=== PATIENT | female | born 1955 | race Two or more races ===

== ENCOUNTER 2019-11-26 07:01 | Day surgery (SDC) | payer MEDICARE ==
[2019-11-19 11:52] LABS: BASOPHILS # (AUTO) 0.1 X10'3 (0-0.2); EOSINOPHILS % (AUTO) 0.4 % (0-6); LYMPHOCYTES # (AUTO) 2.1 X10'3 (1.1-4.8); LYMPHOCYTES % (AUTO) 24.9 % (21-51); MEAN CORPUSCULAR HEMOGLOBIN 34.3 PG (27.0-31.0); MEAN CORPUSCULAR HGB CONC 34.9 g/dL (33.0-36.5); MEAN CORPUSCULAR VOLUME 98.2 FL (78-98); MEAN PLATELET VOLUME 8.4 FL (7.4-10.4); MONOCYTES # (AUTO) 0.4 X10'3 (0-0.9); MONOCYTES % (AUTO) 4.9 % (2-12); NEUTROPHILS # (AUTO) 5.9 X10'3 (1.8-7.7); NEUTROPHILS % (AUTO) 68.8 % (42-75); PRE OP PLATELET COUNT 237 X10'3 (140-440); RED BLOOD COUNT 4.68 X10'6 (4.20-5.60); RED CELL DISTRIBUTION WIDTH 13.2 % (11.5-14.5)
[2019-11-19 12:12] LABS: ALBUMIN 3.6 G/DL (3.4-5.0); ALBUMIN/GLOBULIN RATIO 0.9 (1.1-1.5); ALKALINE PHOSPHATASE 86 IU/L (46-116); BLOOD UREA NITROGEN 16 MG/DL (7-18); CALCIUM 8.7 MG/DL (8.5-10.1); CHLORIDE 104 MMOL/L (99-107); PRE OP ALT 23 U/L (30-65); PRE OP ANION GAP 10 (8-16); PRE OP AST 13 U/L (10-37); PRE OP BILIRUB, TOTAL 0.4 MG/DL (0.0-1.0); PRE OP GLUCOSE 94 MG/DL (70-104); PRE OP POTASSIUM 3.9 MMOL/L (3.4-5.1); PRE OP SODIUM 138 MMOL/L (135-145); TOTAL CARBON DIOXIDE 24.3 MMOL/L (24-32); TOTAL PROTEIN 7.7 G/DL (6.4-8.2); eGFR 72 ML/MIN
[2019-11-26] VITALS (13 sets, daily range): BP systolic 142–187; BP diastolic 67–96
[~2019-11-26] VITALS: Ht 157.5 cm; Wt 94.3 kg
[~2019-11-26 07:01] MED LIST: APIX5TAB3 PO; BUPIVAcaine/PF 2.5 mg/ml (0.25%) 30ml vial ONE; CHLO25TA2 PO; DOCUMENT DATE & TIME OF BETA-BLOCKER PO ONE; ESCI10TA61 PO; LIDOcaine 1% 30ml preserv. free vial ONE; LOSA50TA64 PO; NEBI5TAB10 PO; OMEP-50 PO; PRAV40TA3 PO; PROP150T2 PO; clindamycin-Cleocin 900mg/D5W 50 ML IV ONE; famotidine 20mg tablet PO ONE; ringers solution, lacted 1,000 ML IV SCH
[2019-11-26] MEDS ORDERED: ringers solution, lacted 1,000 ML IV SCH (09:27)
[2019-11-26] MEDS ORDERED: ondansetron/PF 4mg/2ml inj IV PRN (09:30)
[2019-11-26] MEDS ORDERED: morphine 2 MG/ML inj. syringe IV PRN (09:30)
[2019-11-26] MEDS ORDERED: morphine 4 MG/ML inj SYRINge IV PRN (09:30)
[2019-11-26] MEDS ORDERED: hydrALAZINE 20mg/ml inj. IV PRN (09:30)
[2019-11-26] MEDS ORDERED: fentaNYL/PF 50MCG/1 ML 2ML syringe IV PRN ×2 (09:30)
[2019-11-26] MEDS ORDERED: labetalol 20mg/4ml (5mg/ml) syringe IV PRN (09:30)
[2019-11-26] MEDS ORDERED: sevoflurane 250ml liquid IH ONE (09:34)
[2019-11-26] MEDS ORDERED: glycopyrrolate 0.2mg/ml inj ONE (09:34)
[2019-11-26] MEDS ORDERED: neostigmine methylsulfate 1 MG/ML 10ml vial ONE (09:34)
[2019-11-26] MEDS ORDERED: fentaNYL/PF 50MCG/1 ML 2ML syringe ONE (09:35)
[2019-11-26] MEDS ORDERED: midazolam 2 mg/2 ml injection ONE (09:35)
[2019-11-26] MEDS ORDERED: rocuronium 10mg/ml inj IV ONE (09:40)
[2019-11-26] MEDS ORDERED: ondansetron/PF 4mg/2ml inj ONE (09:40)
[2019-11-26] MEDS ORDERED: propofol inj 20 ML IV ONE (09:40)
[2019-11-26] MEDS ORDERED: dexamethasone sod phosphate 4mg/ml inj. ONE (09:41)
[2019-11-26] MEDS ORDERED: labetalol 20mg/4ml (5mg/ml) syringe IV ONE (09:42)
[2019-11-26] MEDS ORDERED: BUPIVAcaine/PF 2.5mg/ml (0.25%) 10ml vial ONE (09:45)
[2019-11-26] MEDS ORDERED: BUPIVACAINE liposomal/PF 13.3 MG/ML vial IM ONE (09:45)
--- NOTE | 2019-11-26 10:54 | NUR ---
Received from OR via BED, accompanied by Anesthesiologist DR LOWERY and report given by Anesthesiologist. PT DROWSY, NO S/S OF DISTRESS/DISCOMFORT, ABDOMEN W/3 LAP SITES W/PAULIEAIDES CDI. Addendum: 11/26/19 at 1115 by Susi Forrester RN Amended: Links added.
[2019-11-26] MEDS ORDERED: oxyCODONE/APAP 5-325mg tablet PO PRN (11:10)
--- NOTE | 2019-11-26 13:14 | NUR ---
PT UP AND AMBULATING, WAS ABLE TO VOID, PAIN MEDICATION GIVEN FOR SLIGHT PAIN AND RIDE HOME, D/CD INSTRUCTIONS GIVEN AND GONE OVER W/PT WHO VERBALIZED UNDERSTANDING. PT D/CD TO HOME VIA W/C TO PRIVATE VEHICLE W/O INCIDENT. Addendum: 11/26/19 at 1327 by Susi Forrester RN Amended: Links added.
== END 2019-11-26 13:14 | disposition home or self-care (01) ==
LOC: PAS 07:01
PROVIDERS: ATTEND Surgery
DX: K42.0 Umbilical hernia with obstruction, without gangrene (principal); Z11.59 Encounter for screening for other viral diseases; I48.19 Other persistent atrial fibrillation; F41.9 Anxiety disorder, unspecified; F32.9 Major depressive disorder, single episode, unspecified; I10 Essential (primary) hypertension; E66.01 Morbid (severe) obesity due to excess calories; Z68.38 Body mass index [BMI] 38.0-38.9, adult; Z98.890 Other specified postprocedural states; Z79.899 Other long term (current) drug therapy; Z88.0 Allergy status to penicillin; Z91.018 Allergy to other foods; Z82.3 Family history of stroke; Z82.49 Family history of ischemic heart disease and other diseases of the circulatory system; Z82.61 Family history of arthritis
CPT/HCPCS: 36415; 49653; 64488; 80053; 82948; 85025; 93005; C1781; C9290; J1100; J2001; J2250; J2405; J2704; J2710; J3010; J3490; J7120; U0003; A4215; A4618